=== PATIENT | male | born 1935 | race Caucasian/White ===

== ENCOUNTER → 2023-12-22 15:01 | Outpatient (REF) | payer OTHER, SELFPAY | LOC: RCS 15:01 | PROVIDERS: ATTENDING PHYSICIAN Thoracic Surgery (Cardiothoracic Vascular Surgery); FAMILY PHYSICIAN Internal Medicine Geriatric Medicine | DX: I34.0 Nonrheumatic mitral (valve) insufficiency (principal) | CPT/HCPCS: 93306 ==

== ENCOUNTER → 2023-12-28 12:05 | Outpatient (REF) | payer OTHER, SELFPAY | LOC: RAD 12:05 | PROVIDERS: ATTENDING PHYSICIAN Internal Medicine Interventional Cardiology; FAMILY PHYSICIAN Internal Medicine Geriatric Medicine | DX: R06.09 Other forms of dyspnea (principal) | CPT/HCPCS: 71046 ==

== ENCOUNTER 2023-12-28 13:00 | Outpatient (RCR) | payer OTHER, SELFPAY | END 2023-12-28 23:59 | disposition home or self-care (01) | LOC: CRHB 13:00 | PROVIDERS: ATTENDING PHYSICIAN Internal Medicine Interventional Cardiology; FAMILY PHYSICIAN Internal Medicine Geriatric Medicine | DX: Z95.4 Presence of other heart-valve replacement (principal) | CPT/HCPCS: G0422 ==

== ENCOUNTER 2024-01-29 13:18 | Outpatient (RCR) | payer OTHER, SELFPAY | END 2024-01-29 23:59 | disposition home or self-care (01) | LOC: CRHB 13:18 | PROVIDERS: ATTENDING PHYSICIAN Internal Medicine Interventional Cardiology; FAMILY PHYSICIAN Internal Medicine Geriatric Medicine | DX: Z95.4 Presence of other heart-valve replacement (principal); I25.10 Atherosclerotic heart disease of native coronary artery without angina pectoris | CPT/HCPCS: G0422; G0423 ==

== ENCOUNTER 2024-02-29 13:40 | Outpatient (RCR) | payer OTHER, SELFPAY | END 2024-02-29 23:59 | disposition home or self-care (01) | LOC: CRHB 13:40 | PROVIDERS: ATTENDING PHYSICIAN Internal Medicine Interventional Cardiology; FAMILY PHYSICIAN Internal Medicine Geriatric Medicine | DX: I34.0 Nonrheumatic mitral (valve) insufficiency (principal); Z95.4 Presence of other heart-valve replacement | CPT/HCPCS: G0422; G0423 ==

== ENCOUNTER 2024-04-01 14:31 | Outpatient (RCR) | payer OTHER, SELFPAY | END 2024-04-01 23:59 | disposition home or self-care (01) | LOC: CRHB 14:31 | PROVIDERS: ATTENDING PHYSICIAN Internal Medicine Interventional Cardiology; FAMILY PHYSICIAN Internal Medicine Geriatric Medicine | DX: I34.0 Nonrheumatic mitral (valve) insufficiency (principal); Z95.4 Presence of other heart-valve replacement | CPT/HCPCS: G0422; G0423 ==

== ENCOUNTER 2024-04-25 13:21 | Outpatient (RCR) | payer OTHER, SELFPAY ==
[2024-04-18 16:32] LABS: HDL Cholesterol 60 mg/dl; LDL Cholesterol, Calculated 66 mg/dl; Total Cholesterol 141 mg/dl (50-199); Triglyceride 78 mg/dl (10-149); Very Low Density Lipoprotein 15 mg/dl (0-30)
== END 2024-04-25 23:59 | disposition home or self-care (01) ==
LOC: CRHB 13:21
PROVIDERS: ATTENDING PHYSICIAN Internal Medicine Interventional Cardiology; FAMILY PHYSICIAN Internal Medicine Geriatric Medicine
DX: Z95.4 Presence of other heart-valve replacement (principal)
CPT/HCPCS: 36415; 80061; G0422; G0423

== ENCOUNTER → 2024-05-09 10:18 | Outpatient (REF) | payer OTHER, SELFPAY | LOC: WDC 10:18 | PROVIDERS: ATTENDING PHYSICIAN Internal Medicine Geriatric Medicine | DX: N64.4 Mastodynia (principal); N62 Hypertrophy of breast | CPT/HCPCS: 76642; 77062; 77066 ==

== ENCOUNTER → 2024-05-10 09:59 | Outpatient (REF) | payer OTHER, SELFPAY | LOC: HWRAD 09:59 | PROVIDERS: ATTENDING PHYSICIAN Internal Medicine; FAMILY PHYSICIAN Internal Medicine Geriatric Medicine | DX: M81.0 Age-related osteoporosis without current pathological fracture (principal) | CPT/HCPCS: 77080 ==

== ENCOUNTER → 2024-07-19 14:05 | Outpatient (REF) | payer OTHER, SELFPAY | LOC: RCS 14:05 | PROVIDERS: ATTENDING PHYSICIAN Thoracic Surgery (Cardiothoracic Vascular Surgery); FAMILY PHYSICIAN Internal Medicine Geriatric Medicine | DX: Z98.890 Other specified postprocedural states (principal) | CPT/HCPCS: 93306 ==

== ENCOUNTER → 2025-06-20 14:57 | Outpatient (REF) | payer OTHER, SELFPAY | LOC: HWRCS 14:57 | PROVIDERS: ATTENDING PHYSICIAN Internal Medicine Interventional Cardiology; FAMILY PHYSICIAN Internal Medicine Geriatric Medicine | DX: Z98.890 Other specified postprocedural states (principal) | CPT/HCPCS: 93306 ==